=== PATIENT | female | born 1950 | race Caucasian/White ===

== ENCOUNTER 2018-09-10 05:29 | Inpatient (IN) | payer MEDICARE, BC ==
[2018-09-10] MEDS: SCOPOLAMINE 1.5MG PATCH TD SCH (06:01)
[2018-09-10] MEDS ORDERED: LACTATED RINGERS 1,000 ML IV ONE (06:30)
[2018-09-10] MEDS ORDERED: CELECOXIB 100 MG CAP PO ONE (06:30)
[2018-09-10] MEDS ORDERED: BUPIVACAINE HCL 0.25% MPF 30 ML SOL INFIL ONE (07:12)
[2018-09-10] MEDS ORDERED: SODIUM CHLORIDE 20 ML 20 ML ONE (07:12)
[2018-09-10] MEDS ORDERED: LACTATED RINGERS 1,000 ML IV SCH (07:30)
[2018-09-10] MEDS ORDERED: EPINEPHRINE 1:1000 AMP 1 MG/ML SOL ONE (07:38)
[2018-09-10] MEDS ORDERED: MORPHINE SULFATE 0.5 MG/ML SOL ONE (07:39)
[2018-09-10] MEDS ORDERED: MIDAZOLAM 2 MG/2 ML SOL ONE (07:40)
[2018-09-10] MEDS ORDERED: CEFAZOLIN SODIUM 1 GM PDS ONE ×3 (07:40→16:33)
[2018-09-10] MEDS ORDERED: KETAMINE HYDROCHLORIDE 50 MG/ML SOL ONE (07:42)
[2018-09-10] MEDS ORDERED: PROPOFOL 500 MG/50 ML EMU IV ONE (08:01)
[2018-09-10] MEDS ORDERED: DEXAMETHASONE 20 MG/5 ML (4 MG/ML SOL) ONE (08:07)
[2018-09-10] MEDS: BUPIVACAINE LIPOSOME 20 ML SUS ONE ×4 (09:05→10:39)
[2018-09-10] MEDS: SODIUM CHLORIDE 0.9% FLUSH 10 ML SOL IV PRN ×4 (09:05→10:39)
[2018-09-10] MEDS: TRANEXAMIC ACID 100 MG/ML SOL ONE ×2 (09:46→10:52)
[2018-09-10] MEDS ORDERED: KETOROLAC TROMETHAMINE 30 MG/ML SOL ONE (10:38)
[2018-09-10] MEDS ORDERED: PROPOFOL 10 MG/ML 200 MG/20 ML EMU IV ONE (10:48)
[2018-09-10] MEDS ORDERED: MORPHINE SULFATE 10 MG/ML SOL IV PRN (11:02)
[2018-09-10] MEDS ORDERED: ONDANSETRON 4 MG ODT BU PRN (11:02)
[2018-09-10] MEDS ORDERED: SODIUM CHLORIDE 0.9% 500 ML 500 ML IV PRN (11:02)
[2018-09-10] MEDS ORDERED: DEXTROSE/SALINE 0.45/KCL 20MEQ 1,000 ML/1,000 ML SOL IV SCH (11:15)
[2018-09-10] MEDS ORDERED: HYDROMORPHONE 1 MG/ML SYRINGE ONE (11:23)
[2018-09-10] MEDS ORDERED: ACETAMINOPHEN 1,000 MG/100 ML VIAL IV ONE (11:51)
[2018-09-10] MEDS: SODIUM CHLORIDE 0.9% FLUSH 10 ML SOL IV SCH ×2 (12:22→20:02)
[2018-09-10] MEDS: APAP/HYDROCODONE 1 EACH TABLET PO PRN ×2 (15:51→20:04)
[2018-09-10] MEDS ORDERED: PDS IV SCH (16:30)
[2018-09-10] MEDS ORDERED: DEXTROSE IV SCH (16:30)
[2018-09-10] MEDS ORDERED: CEFAZOLIN SODIUM IV SCH (16:30)
[2018-09-10] MEDS: DEXTROSE IV SCH (16:53)
[2018-09-10] MEDS: PDS IV SCH (16:53)
[2018-09-10] MEDS: CEFAZOLIN SODIUM IV SCH (16:53)
[2018-09-10] MEDS: NOVOLOG FLEXPEN SC SCH ×2 (17:19→20:22)
[2018-09-10] MEDS: ACETAMINOPHEN 325 MG PO PRN (19:02)
[2018-09-10] MEDS ORDERED: CEFAZOLIN (PREMIX) 1 GM 1 GM/50 ML SOL IV SCH (19:06)
[2018-09-10] MEDS: DEXTROSE/SALINE 0.45/KCL 20MEQ 1,000 ML/1,000 ML SOL IV SCH (20:02)
[2018-09-10] MEDS: SENNOSIDES A AND B 8.6 MG TAB PO SCH (20:23)
[2018-09-11] MEDS ORDERED: CEFAZOLIN SODIUM 1 GM PDS ONE (01:45)
[2018-09-11] MEDS ORDERED: DEXTROSE 50 ML 50 ML IV ONE (01:45)
[2018-09-11] MEDS: DEXTROSE IV SCH (01:50)
[2018-09-11] MEDS: CEFAZOLIN SODIUM IV SCH (01:50)
[2018-09-11] MEDS: PDS IV SCH (01:50)
[2018-09-11] MEDS: APAP/HYDROCODONE 1 EACH TABLET PO PRN ×3 (02:09→11:09)
[2018-09-11] MEDS: DIAZEPAM 5 MG TAB PO PRN ×2 (03:09→20:49)
[2018-09-11] MEDS: SODIUM CHLORIDE 0.9% FLUSH 10 ML SOL IV SCH ×3 (03:10→19:25)
[2018-09-11] MEDS: DEXTROSE/SALINE 0.45/KCL 20MEQ 1,000 ML/1,000 ML SOL IV SCH (06:59)
[2018-09-11 07:29] LABS: HEMOGLOBIN 10.4 gm/dl (12.0-15.5); MEAN CORPUSCULAR HEMOGLOBIN 29.5 pg (27.0-32.0); MEAN CORPUSCULAR HGB CONC 32.3 gm/dl (32.0-36.0)
[2018-09-11] MEDS: NOVOLOG FLEXPEN SC SCH ×4 (07:59→20:47)
[2018-09-11] MEDS: FOLIC ACID 1 MG TAB PO SCH (08:45)
[2018-09-11] MEDS: FERROUS GLUCONATE 324 MG TABLET PO SCH (08:45)
[2018-09-11] MEDS: RIVAROXABAN 10 MG TAB PO SCH (08:46)
[2018-09-11] MEDS: MAGNESIUM OXIDE 400 MG TAB PO SCH (08:46)
[2018-09-11] MEDS: CANAGLIFLOZIN PO SCH (08:47)
[2018-09-11] MEDS: METFORMIN HCL PO SCH (08:47)
[2018-09-11] MEDS: [UNRECOGNIZED DRUG - OTHER] PO SCH (08:47)
[2018-09-11] MEDS ORDERED: ASPIRIN EC 81 MG PO SCH (09:00)
[2018-09-11] MEDS ORDERED: ALBUTEROL NEB SOL 2.5MG/3ML 1 VIAL SOL NEB PRN (11:26)
[2018-09-11] MEDS: OXYCODONE HYDROCHLORIDE 5 MG TAB PO PRN ×2 (15:26→19:24)
[2018-09-11] MEDS: SENNOSIDES A AND B 8.6 MG TAB PO SCH (20:48)
[2018-09-11] MEDS: ACETAMINOPHEN 325 MG PO PRN (23:01)
[2018-09-12] MEDS: OXYCODONE HYDROCHLORIDE 5 MG TAB PO PRN ×4 (02:05→19:28)
[2018-09-12] MEDS: SODIUM CHLORIDE 0.9% FLUSH 10 ML SOL IV SCH ×3 (07:20→22:28)
[2018-09-12 07:28] LABS: HEMOGLOBIN 11.7 gm/dl (12.0-15.5); MEAN CORPUSCULAR HEMOGLOBIN 30.2 pg (27.0-32.0)
[2018-09-12] MEDS: NOVOLOG FLEXPEN SC SCH ×4 (08:59→22:28)
[2018-09-12] MEDS: METFORMIN HCL PO SCH (09:00)
[2018-09-12] MEDS: [UNRECOGNIZED DRUG - OTHER] PO SCH (09:00)
[2018-09-12] MEDS: FOLIC ACID 1 MG TAB PO SCH (09:00)
[2018-09-12] MEDS: CANAGLIFLOZIN PO SCH (09:00)
[2018-09-12] MEDS: MAGNESIUM OXIDE 400 MG TAB PO SCH (09:01)
[2018-09-12] MEDS: RIVAROXABAN 10 MG TAB PO SCH (09:01)
[2018-09-12] MEDS: FERROUS GLUCONATE 324 MG TABLET PO SCH (09:01)
[2018-09-12] MEDS: ACETAMINOPHEN 325 MG PO PRN (09:35)
[2018-09-12] MEDS: DIAZEPAM 5 MG TAB PO PRN (09:35)
[2018-09-12] MEDS: LISINOPRIL 5 MG TAB PO SCH (09:55)
[2018-09-12 17:20] VITALS: O2SAT 96
[2018-09-12] MEDS: SENNOSIDES A AND B 8.6 MG TAB PO SCH (20:20)
[2018-09-12 20:26] VITALS: RESP 18
[2018-09-13] MEDS: OXYCODONE HYDROCHLORIDE 5 MG TAB PO PRN ×5 (02:13→23:33)
[2018-09-13] MEDS: SODIUM CHLORIDE 0.9% FLUSH 10 ML SOL IV SCH (05:00)
[2018-09-13 07:41] LABS: HEMOGLOBIN 11.3 gm/dl (12.0-15.5); MEAN CORPUSCULAR HEMOGLOBIN 29.2 pg (27.0-32.0); MEAN CORPUSCULAR HGB CONC 31.6 gm/dl (32.0-36.0)
[2018-09-13] MEDS: SCOPOLAMINE 1.5MG PATCH TD SCH (07:44)
[2018-09-13] MEDS: LISINOPRIL 5 MG TAB PO SCH (08:03)
[2018-09-13] MEDS: NOVOLOG FLEXPEN SC SCH ×3 (08:03→22:44)
[2018-09-13] MEDS: RIVAROXABAN 10 MG TAB PO SCH (08:04)
[2018-09-13] MEDS: MAGNESIUM OXIDE 400 MG TAB PO SCH (08:04)
[2018-09-13] MEDS: FOLIC ACID 1 MG TAB PO SCH (08:05)
[2018-09-13] MEDS: FERROUS GLUCONATE 324 MG TABLET PO SCH (08:05)
[2018-09-13] MEDS: CANAGLIFLOZIN PO SCH (08:11)
[2018-09-13] MEDS: [UNRECOGNIZED DRUG - OTHER] PO SCH (08:11)
[2018-09-13] MEDS: METFORMIN HCL PO SCH (08:11)
[2018-09-13] MEDS ORDERED: MAGNESIUM HYDROXIDE 30 ML SUS PO PRN (09:03)
[2018-09-13] MEDS ORDERED: POLYETHYLENE GLYCOL 17 GM/1 TBS PDS PO PRN (09:03)
[2018-09-13 18:35] VITALS: TEMP 98.1
[2018-09-13] MEDS: SENNOSIDES A AND B 8.6 MG TAB PO SCH (22:53)
[2018-09-14] MEDS: ACETAMINOPHEN 325 MG PO PRN (02:06)
[2018-09-14] MEDS: DIAZEPAM 5 MG TAB PO PRN (02:06)
[2018-09-14 02:31] VITALS: BP 127/74; PULSE 84
[2018-09-14] MEDS: OXYCODONE HYDROCHLORIDE 5 MG TAB PO PRN (07:24)
[2018-09-14] MEDS: LISINOPRIL 5 MG TAB PO SCH (09:04)
[2018-09-14] MEDS: FOLIC ACID 1 MG TAB PO SCH (09:04)
[2018-09-14] MEDS: FERROUS GLUCONATE 324 MG TABLET PO SCH (09:04)
[2018-09-14] MEDS: MAGNESIUM OXIDE 400 MG TAB PO SCH (09:04)
[2018-09-14] MEDS: RIVAROXABAN 10 MG TAB PO SCH (09:04)
[2018-09-14] MEDS: METFORMIN HCL PO SCH (09:15)
[2018-09-14] MEDS: [UNRECOGNIZED DRUG - OTHER] PO SCH (09:15)
[2018-09-14] MEDS: CANAGLIFLOZIN PO SCH (09:15)
== END 2018-09-14 09:45 | disposition swing bed (61) | DRG 983 ==
LOC: ACUTE CARE 05:29
PROVIDERS: ADMIT Orthopaedic Surgery; ATTEND Orthopaedic Surgery
PROC: 0SRC0J9 Replacement of Right Knee Joint with Synthetic Substitute, Cemented, Open Approach (ICD-10-PCS; 2018-09-10)
PROC: F01ZBFZ Bed Mobility Assessment using Assistive, Adaptive, Supportive or Protective Equipment (ICD-10-PCS; 2018-09-10)
PROC: 0SRD0J9 Replacement of Left Knee Joint with Synthetic Substitute, Cemented, Open Approach (ICD-10-PCS; principal; 2018-09-10 08:00)
PROC: F02Z3ZZ Grooming/Personal Hygiene Assessment (ICD-10-PCS; 2018-09-11)
DX: R05 Cough (principal); M21.162 Varus deformity, not elsewhere classified, left knee; M21.161 Varus deformity, not elsewhere classified, right knee; M17.0 Bilateral primary osteoarthritis of knee; Z96.653 Presence of artificial knee joint, bilateral; R73.03 Prediabetes; R03.0 Elevated blood-pressure reading, without diagnosis of hypertension; H53.2 Diplopia
CPT/HCPCS: 36415; 73560; 82962; 85027; 85049; 94150; 99070; J0690; J1100; J1885; J2250; J2274; A6232; A9270-GY; J0131; J1170; J2704; J3490; Q3014

== ENCOUNTER 2018-09-14 08:54 | Inpatient (IN) | payer MEDICARE, BC ==
[2018-09-14] MEDS: OXYCODONE HYDROCHLORIDE 5 MG TAB PO PRN ×3 (11:37→20:02)
[2018-09-14] MEDS ORDERED: ACETAMINOPHEN 325 MG PO SCH (11:45)
[2018-09-14] MEDS: ACETAMINOPHEN 325 MG PO PRN (14:25)
[2018-09-14] MEDS: SENNOSIDES A AND B 8.6 MG TAB PO SCH (20:02)
[2018-09-15] MEDS: OXYCODONE HYDROCHLORIDE 5 MG TAB PO PRN ×5 (00:40→20:33)
[2018-09-15] MEDS: ACETAMINOPHEN 325 MG PO PRN ×3 (00:40→13:15)
[2018-09-15] MEDS: DIAZEPAM 5 MG TAB PO PRN ×2 (01:38→22:41)
[2018-09-15] MEDS: CANAGLIFLOZIN PO SCH (08:56)
[2018-09-15] MEDS: [UNRECOGNIZED DRUG - OTHER] PO SCH (08:56)
[2018-09-15] MEDS: METFORMIN HCL PO SCH (08:56)
[2018-09-15] MEDS: MAGNESIUM OXIDE 400 MG TAB PO SCH (08:57)
[2018-09-15] MEDS: FOLIC ACID 1 MG TAB PO SCH (08:57)
[2018-09-15] MEDS: RIVAROXABAN 10 MG TAB PO SCH (08:57)
[2018-09-15] MEDS: FERROUS GLUCONATE 324 MG TABLET PO SCH (08:57)
[2018-09-15] MEDS ORDERED: ONDANSETRON 4 MG ODT BU PRN (14:11)
[2018-09-15] MEDS: SENNOSIDES A AND B 8.6 MG TAB PO SCH (20:11)
[2018-09-16] MEDS: OXYCODONE HYDROCHLORIDE 5 MG TAB PO PRN (06:22)
[2018-09-16 07:18] LABS: ALBUMIN 2.8 gm/dl (3.4-5.0); BILIRUBIN,TOTAL 0.7 mg/dl (0.2-1.0); CALCIUM 8.4 mg/dl (8.5-10.1); CARBON DIOXIDE 25.6 mEq/L (21-32); CREATININE 0.66 mg/dl (0.60-1.00); TOTAL PROTEIN 6.8 gm/dl (6.4-8.2)
[2018-09-16] MEDS: FERROUS GLUCONATE 324 MG TABLET PO SCH (08:33)
[2018-09-16] MEDS: MAGNESIUM OXIDE 400 MG TAB PO SCH (08:33)
[2018-09-16] MEDS: RIVAROXABAN 10 MG TAB PO SCH (08:33)
[2018-09-16] MEDS: FOLIC ACID 1 MG TAB PO SCH (08:33)
[2018-09-16] MEDS: CANAGLIFLOZIN PO SCH (08:36)
[2018-09-16] MEDS: METFORMIN HCL PO SCH (08:36)
[2018-09-16] MEDS: [UNRECOGNIZED DRUG - OTHER] PO SCH (08:36)
[2018-09-16] MEDS: ACETAMINOPHEN 325 MG PO PRN ×2 (12:50→18:09)
[2018-09-16] MEDS: TRAMADOL HYDROCHLORIDE 50 MG TAB PO PRN ×2 (13:42→21:07)
[2018-09-16] MEDS: SENNOSIDES A AND B 8.6 MG TAB PO SCH (21:07)
[2018-09-16] MEDS: DIAZEPAM 5 MG TAB PO PRN (23:59)
[2018-09-17] MEDS: TRAMADOL HYDROCHLORIDE 50 MG TAB PO PRN ×3 (06:26→21:55)
[2018-09-17] MEDS: RIVAROXABAN 10 MG TAB PO SCH (08:40)
[2018-09-17] MEDS: MAGNESIUM OXIDE 400 MG TAB PO SCH (08:40)
[2018-09-17] MEDS: FOLIC ACID 1 MG TAB PO SCH (08:40)
[2018-09-17] MEDS: [UNRECOGNIZED DRUG - OTHER] PO SCH (08:40)
[2018-09-17] MEDS: METFORMIN HCL PO SCH (08:40)
[2018-09-17] MEDS: FERROUS GLUCONATE 324 MG TABLET PO SCH (08:40)
[2018-09-17] MEDS: CANAGLIFLOZIN PO SCH (08:40)
[2018-09-17] MEDS: ACETAMINOPHEN 325 MG PO PRN ×2 (10:50→17:44)
[2018-09-17] MEDS: SENNOSIDES A AND B 8.6 MG TAB PO SCH (21:16)
[2018-09-18] MEDS: ACETAMINOPHEN 325 MG PO PRN ×4 (02:00→20:19)
[2018-09-18] MEDS: TRAMADOL HYDROCHLORIDE 50 MG TAB PO PRN ×3 (04:24→20:19)
[2018-09-18] MEDS: METFORMIN HCL PO SCH (09:32)
[2018-09-18] MEDS: CANAGLIFLOZIN PO SCH (09:32)
[2018-09-18] MEDS: RIVAROXABAN 10 MG TAB PO SCH (09:32)
[2018-09-18] MEDS: FERROUS GLUCONATE 324 MG TABLET PO SCH (09:32)
[2018-09-18] MEDS: FOLIC ACID 1 MG TAB PO SCH (09:32)
[2018-09-18] MEDS: MAGNESIUM OXIDE 400 MG TAB PO SCH (09:32)
[2018-09-18] MEDS: [UNRECOGNIZED DRUG - OTHER] PO SCH (09:32)
[2018-09-18] MEDS: SENNOSIDES A AND B 8.6 MG TAB PO SCH (20:20)
[2018-09-19] MEDS: ACETAMINOPHEN 325 MG PO PRN ×3 (00:36→20:43)
[2018-09-19] MEDS: FERROUS GLUCONATE 324 MG TABLET PO SCH (09:30)
[2018-09-19] MEDS: MAGNESIUM OXIDE 400 MG TAB PO SCH (09:30)
[2018-09-19] MEDS: [UNRECOGNIZED DRUG - OTHER] PO SCH (09:30)
[2018-09-19] MEDS: METFORMIN HCL PO SCH (09:30)
[2018-09-19] MEDS: CANAGLIFLOZIN PO SCH (09:30)
[2018-09-19] MEDS: FOLIC ACID 1 MG TAB PO SCH (09:31)
[2018-09-19] MEDS: RIVAROXABAN 10 MG TAB PO SCH (09:31)
[2018-09-19] MEDS: TRAMADOL HYDROCHLORIDE 50 MG TAB PO PRN ×3 (09:32→21:48)
[2018-09-19] MEDS: SENNOSIDES A AND B 8.6 MG TAB PO SCH (20:43)
[2018-09-19] MEDS: DIAZEPAM 5 MG TAB PO PRN (23:25)
[2018-09-20] MEDS: OXYCODONE HYDROCHLORIDE 5 MG TAB PO PRN ×2 (00:23→06:24)
[2018-09-20 09:16] VITALS: RESP 18
[2018-09-20] MEDS: CANAGLIFLOZIN PO SCH (09:17)
[2018-09-20] MEDS: FERROUS GLUCONATE 324 MG TABLET PO SCH (09:17)
[2018-09-20] MEDS: METFORMIN HCL PO SCH (09:17)
[2018-09-20] MEDS: [UNRECOGNIZED DRUG - OTHER] PO SCH (09:17)
[2018-09-20] MEDS: MAGNESIUM OXIDE 400 MG TAB PO SCH (09:18)
[2018-09-20] MEDS: FOLIC ACID 1 MG TAB PO SCH (09:18)
[2018-09-20] MEDS: RIVAROXABAN 10 MG TAB PO SCH (09:18)
[2018-09-20] MEDS: TRAMADOL HYDROCHLORIDE 50 MG TAB PO PRN ×2 (13:18→20:48)
[2018-09-20] MEDS: ACETAMINOPHEN 325 MG PO PRN (16:48)
[2018-09-20] MEDS: SENNOSIDES A AND B 8.6 MG TAB PO SCH (20:49)
[2018-09-21] MEDS: TRAMADOL HYDROCHLORIDE 50 MG TAB PO PRN (02:45)
[2018-09-21 07:51] VITALS: BP 129/77; PULSE 94; TEMP 97.2; O2SAT 97
[2018-09-21] MEDS: FERROUS GLUCONATE 324 MG TABLET PO SCH (08:30)
[2018-09-21] MEDS: MAGNESIUM OXIDE 400 MG TAB PO SCH (08:30)
[2018-09-21] MEDS: FOLIC ACID 1 MG TAB PO SCH (08:30)
[2018-09-21] MEDS: RIVAROXABAN 10 MG TAB PO SCH (08:30)
[2018-09-21] MEDS: [UNRECOGNIZED DRUG - OTHER] PO SCH (08:32)
[2018-09-21] MEDS: CANAGLIFLOZIN PO SCH (08:32)
[2018-09-21] MEDS: METFORMIN HCL PO SCH (08:32)
== END 2018-09-21 09:30 | disposition home or self-care (01) | DRG 554 ==
LOC: ACUTE CARE 09:50
PROVIDERS: ADMIT Family Medicine; ATTEND Family Medicine
PROC: F01L0FZ Muscle Performance Assessment of Musculoskeletal System - Lower Back / Lower Extremity using Assistive, Adaptive, Supportive or Protective Equipment (ICD-10-PCS; principal; 2018-09-14)
PROC: F01L5YZ Range of Motion and Joint Integrity Assessment of Musculoskeletal System - Lower Back / Lower Extremity using Other Equipment (ICD-10-PCS; 2018-09-14)
PROC: F02Z0FZ Bathing/Showering Assessment using Assistive, Adaptive, Supportive or Protective Equipment (ICD-10-PCS; 2018-09-15)
PROC: F02Z3FZ Grooming/Personal Hygiene Assessment using Assistive, Adaptive, Supportive or Protective Equipment (ICD-10-PCS; 2018-09-15)
DX: M17.0 Bilateral primary osteoarthritis of knee (principal); Z96.653 Presence of artificial knee joint, bilateral; Z98.890 Other specified postprocedural states; R73.03 Prediabetes
CPT/HCPCS: 36415; 80053; A9270-GY

== ENCOUNTER 2018-10-15 11:35 | Outpatient (CLI) | payer MEDICARE, BC | END 2018-10-15 11:36 | disposition home or self-care (01) | LOC: CONVCARE 11:36 ==